=== PATIENT | female | born 1990 | race African-American/Black ===

== ENCOUNTER 2025-01-01 16:15 | Emergency (ER) | payer OTHER ==
[~2025-01-01] VITALS: Ht 180.3 cm; Wt 80.0 kg
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
[2025-01-01] MEDS: LORazepam 2MG/ML-1ML VIAL IV ONE (16:30)
[2025-01-01 16:36] VITALS: O2SAT 95
[2025-01-01] MEDS: SODIUM CHLORIDE 0.9% 1,000 ML IV ONE (16:47)
--- NOTE | 2025-01-01 17:07 | DVH ---
CT HEAD WITHOUT CONTRAST INDICATION: altered COMPARISON: None TECHNIQUE: CT of the head without intravenous contrast. RADIATION DOSE: CTDIvol: 53 mGy, DLP: 846 mGy*cm FINDINGS: There is no evidence of acute intracranial hemorrhage, extra-axial collection, mass effect, midline s hift, herniation or hydrocephalus. The ventricles, sulci and cisterns are age appropriate. The ribeiro-white differentiation is intact. The visualized paranasal sinuses and mastoid air cells are clear. The surrounding soft tissues and osseous structures are unremarkable. IMPRESSION: No evidence of acute intracranial abnormalities.
[2025-01-01 17:34] LABS: Basophils # (auto) 0 10 ^3/uL (0-0.2); Basophils % (auto) 0.2 % (0.0-2.0); Eosinophils # (auto) 0 10 ^3/uL (0-0.8); Eosinophils % (auto) 0.3 % (0.0-7.0); Hematocrit 34.8 % (36.0-46.0); Hemoglobin 11.8 g/dL (12.2-16.2); Lymphocytes # (auto) 0.5 10 ^3/uL (0.4-5.4); Lymphocytes % (auto) 13.5 % (10.0-50.0); Mean Corpuscular Hemoglobin 28.4 pg (28.0-32.0); Mean Corpuscular Hgb Conc. 33.7 g/dL (32.0-36.0); Mean Corpuscular Volume 84.1 fL (80.0-100.0); Monocytes # (auto) 0.3 10 ^3/uL (0-1.3); Monocytes % (auto) 8.5 % (0.0-12.0); Neutrophils # (auto) 2.9 10 ^3/uL (1.6-8.6); Neutrophils % (auto) 77.5 % (37.0-80.0); Platelet Count (auto) 170 10^3/uL (140-450); Red Blood Cells 4.14 10^6/uL (4.0-5.20); Red Cell Distribution Width 13.5 % (11.8-14.3); White Blood Cell 3.7 10^3/uL (4.4-10.8)
[2025-01-01 17:51] LABS: Chloride 106 mmol/L (98-107); Potassium 4.2 mmol/L (3.5-5.1); Sodium 136 mmol/L (136-145)
[2025-01-01 17:52] LABS: Anion Gap 7 (5-15); Calcium 8.7 mg/dL (8.7-10.4); Carbon Dioxide 23 mmol/L (20-31)
[2025-01-01 17:57] LABS: BUN/Creatinine Ratio 6.9 (10.0-20.0); Glucose 98 mg/dL (74-106)
[2025-01-01 17:58] LABS: Blood Urea Nitrogen 7 mg/dL (9-23)
[2025-01-01 18:53] LABS: Urine Bacteria None Seen /hpf (None Seen)
[2025-01-01 18:59] LABS: Urine Blood Negative /uL (Negative); Urine Clarity Clear (Clear); Urine Color Light-Yellow (Yellow); Urine Hyaline Cast FEW /lpf (0 - 2); Urine Mucus FEW (None Seen); Urine Protein, UAD Negative (Negative); Urine Specific Gravity 1.008 (1.001-1.035); Urine Squamous Epithelial Cell FEW /hpf (<5); Urine Urobilinogen Normal (Negative); Urine WBC 1 /HPF (0-5)
[2025-01-01 20:50] VITALS: PULSE 96; O2SAT 96
--- NOTE | 2025-01-01 21:00 | DVH ---
CHEST RADIOGRAPH Indication: weakness Technique: Single frontal view of the chest was obtained Comparison: None FINDINGS: Lines and Tubes: None Lungs: Ill-defined increased density right lower lung field may represent overlying breast tissue or airspace disease Pleura: No effusion. No pneumothorax. Cardiomediastinal contours: Unremarkable Bones: No acute osseous abnormality. IMPRESSION: 1. Ill-defined increased density right base may represent overlying breast tissue or airspace disease . Consider lateral chest x-ray
[2025-01-01 21:50] VITALS: BP 98/47; PULSE 77; RESP 15; TEMP 99; O2SAT 99
--- NOTE | 2025-01-03 07:28 | ECG ---
[facility] Test Date: 2025-01-01 Test Time: 20:21:23 Pat Name: AMANDA RYAN Department: ED Room: Gender: F Restaurant Area Manager: navya : 1990 Requested By: AVANI KEITA Order Number: [id number] Reading MD: Measurements Intervals [place] Rate: 74 P: 62 NM: 167 QRS: 86 QRSD: 70 T: 47 QT: 404 QTc: 449 Interpretive Statements Sinus rhythm RSR' in V1 or V2, probably normal variant Please click the below link to view image of tracing.
== END 2025-01-01 22:09 | disposition short-term general hospital (02) ==
LOC: EDBD 16:15 → ER 16:20
DX: G93.41 Metabolic encephalopathy (principal); R56.9 Unspecified convulsions
CPT/HCPCS: 36415; 70450; 71045; 80048; 80320; 81001; 82947; 84484; 84702; 85025; 96360; 99285; J7030; 93005